=== PATIENT | female | born 1975 | race Caucasian/White ===

== ENCOUNTER 2019-01-14 12:46 | Outpatient (CLI) | payer BC | END 2019-01-14 12:47 | disposition home or self-care (01) | LOC: DTY/OP 12:46 | PROVIDERS: ATTEND Specialist | DX: Z01.818 Encounter for other preprocedural examination (principal); E66.01 Morbid (severe) obesity due to excess calories | CPT/HCPCS: 97802 ==

== ENCOUNTER 2019-04-01 12:30 | Inpatient (IN) | payer BC ==
[2019-04-01 13:22] VITALS: BMI 48.6
[2019-04-07] MEDS ORDERED: cefOXitin 2 GM VIAL ONE (08:31)
[2019-04-07] MEDS ORDERED: Heparin 5,000 UNITS/ML VIAL ONE (08:31)
[2019-04-07] MEDS ORDERED: Sodium Chloride 0.9% 100 ML ONE (08:31)
[2019-04-07] MEDS ORDERED: Scopolamine 1.5 mg/72 hour Patch ONE (08:32)
[2019-04-07] MEDS ORDERED: Ketorolac Tromethamine 30 MG/ML VIAL ONE (08:32)
[2019-04-07] MEDS ORDERED: Bupivacaine/Epinephrine 0.25% 30 ML VIAL ONE (08:47)
[2019-04-07] MEDS ORDERED: Lidocaine 1% PF 5 ML VIAL ONE (11:11)
[2019-04-07] MEDS ORDERED: Dexamethasone 20 MG/5 ML VIAL ONE (11:11)
[2019-04-07] MEDS ORDERED: PROPOFOL 200 MG/20 ML VIAL ONE (11:11)
[2019-04-07] MEDS ORDERED: Vecuronium 10 MG VIAL ONE (11:11)
[2019-04-07] MEDS ORDERED: Glycopyrrolate 0.2 MG/ML 5 ML SYRINGE ONE (11:11)
[2019-04-07] MEDS ORDERED: Ondansetron PF 4 MG/2 ML Vial ONE (11:11)
[2019-04-07] MEDS ORDERED: Fentanyl 100 MCG/2 ML VIAL ONE (11:32)
[2019-04-07] MEDS ORDERED: Promethazine HCl 25 MG/ML VIAL ONE (11:38)
[2019-04-07] MEDS ORDERED: Dextrose 50% Abboject 50 ML SYRINGE SLOW IVP PRN (12:52)
[2019-04-07] MEDS ORDERED: Hydrocodone-Acetamin 15 ML UDCUP PO PRN (12:52)
[2019-04-07] MEDS ORDERED: Morphine 4 MG/ML VIAL SLOW IVP PRN ×2 (12:52)
[2019-04-07] MEDS ORDERED: Dextrose 5% in Water 1,000 ML IV PRN (12:52)
[2019-04-07] MEDS ORDERED: Promethazine HCl 25 MG/ML VIAL IM PRN (12:52)
[2019-04-07] MEDS ORDERED: diphenhydrAMINE 50 MG/ML VIAL IVP PRN (12:52)
[2019-04-07] MEDS ORDERED: Ondansetron PF 4 MG/2 ML Vial IVP PRN (12:52)
[2019-04-07] MEDS ORDERED: hydrALAZINE 20 MG/ML VIAL SLOW IVP PRN (12:52)
[2019-04-07] MEDS: Acetaminophen 1,000 MG in Premix Bag 1 BAG IVPB SCH ×2 (14:07→19:50)
[2019-04-07] MEDS: Ketorolac Tromethamine 30 MG/ML VIAL IVP SCH ×2 (14:08→19:50)
[2019-04-07] MEDS: D5 1/2 NS w/20 mEq KCL 1,000 ML IV SCH ×2 (14:08→23:17)
[2019-04-07] MEDS ORDERED: Enoxaparin Sodium 40 MG/0.4 ML SYRINGE SC SCH (21:00)
[2019-04-08] MEDS: Acetaminophen 1,000 MG in Premix Bag 1 BAG IVPB SCH ×2 (02:24→09:07)
[2019-04-08] MEDS: Ketorolac Tromethamine 30 MG/ML VIAL IVP SCH ×2 (02:25→08:58)
[2019-04-08 05:48] LABS: #Lymphocytes 2.2 thou/uL (1.20-3.40); #Monocytes 0.9 thou/uL (0.11-0.59); #Neutrophils 9.1 thou/uL (1.40-6.50); %Basophils 0.2 % (0.0-1.0); %Eosinophils 0.2 % (0.0-10.0); %Monocytes 7.1 % (0.0-10.0); %Neutrophils 74.6 % (42.0-75.0); Hemoglobin 12.1 g/dL (12.0-16.0); Mean Corpuscular HGB CONC 32.7 g/dL (32.0-36.0); Mean Corpuscular Hemoglobin 30.6 pg (27.0-31.0); Mean Corpuscular Volume 93.4 fL (78.0-98.0); Mean Platelet Volume 8.4 fL (7.4-10.4); Platelet Count 270 thou/uL (130-400); RBC Distribution Width 12.2 % (11.5-14.5); Red Blood Cell (RBC) Count 3.95 mill/uL (4.20-5.40); White Blood Cell (WBC) Count 12.1 thou/uL (4.8-10.8)
[2019-04-08 06:09] LABS: Anion Gap 10 mmol/L (10-20); BUN (Urea Nitrogen) 7 mg/dL (7.0-18.7); Calc. Creatinine Clearance 192 mL/min (70-130); Calcium 9.1 mg/dL (7.8-10.44); Carbon Dioxide 24 mmol/L (22-29); Chloride 108 mmol/L (98-107); Estimated GFR-MDRD 86; Glucose 149 mg/dL (70-105); Potassium 4.4 mmol/L (3.5-5.1); Sodium 138 mmol/L (136-145)
[2019-04-08] MEDS: D5 1/2 NS w/20 mEq KCL 1,000 ML IV SCH (07:32)
[2019-04-08 07:59] VITALS: BP 126/80; TEMP 99
[2019-04-08] MEDS ORDERED: Pantoprazole 40 MG VIAL IVP SCH (09:00)
--- NOTE | 2019-04-10 09:43 | OP ---
DATE OF PROCEDURE: 04/07/2019 PREOPERATIVE DIAGNOSIS: Morbid obesity. POSTOPERATIVE DIAGNOSIS: Morbid obesity. OPERATION PERFORMED: Laparoscopic sleeve gastrectomy using a ViSiGi device. ANESTHESIA: General endotracheal. INDICATIONS: The patient is a 44-year-old morbidly obese white female. She is from [place], [place]. She has undergone preoperative evaluation and education and presents today for sleeve gastrectomy and treatment of her obesity. Her BMI is approximately 47. DESCRIPTION OF OPERATION: Informed consent was obtained. The patient was taken to the operating room where general endotracheal anesthesia was obtained with the patient in supine position. Abdomen was prepped with ChloraPrep and draped in sterile fashion. Local anesthetic was infiltrated and 5 mm supraumbilical incision was created through which Veress needle was passed to the peritoneal cavity and pneumoperitoneum established using carbon dioxide up to a pressure of 15 mmHg. A 5 mm trocar port was passed through this same incision. Laparoscopic camera was passed through this port. Under direct vision, 4 additional ports were placed including bilateral 5 mm subcostal ports, a 12 mm right paramedian port and a 15 mm left paramedian port. A 5 mm epigastric incision was created through which Nathansen retractor was passed into the abdominal cavity and used to retract the left lobe of the liver. The patient was placed into reverse Trendelenburg position. The ViSiGi device was advanced within the stomach and used to decompress this. The pylorus was identified and beginning 4 cm proximal to the pylorus, the omentum and vascular tissue along the greater curvature was divided using the LigaSure in an ascending fashion up to the angle of His. All posterior adhesions were mobilized. The short gastric vessels were carefully divided and then hemostasis was maintained using the LigaSure. Once this was completely mobilized, the ViSiGi was carefully positioned at the level of the pylorus and placed to suction, which was clearly defining the lesser curvature of the stomach. The gastrectomy was then performed using a series of fires of the Hemphill stapler using a green load followed by a gold load and a series of blue loads until completion of the gastrectomy. The ViSiGi along the lesser curvature was used as a size 36 bougie to guide in the gastric division. Care was taken to avoid narrowing the incisura or the gastroesophageal junction. The integrity of the staple line was then assessed by insufflating gas through the ViSiGi while irrigating along the staple line. There was no evidence of an air leak. There was no evidence of bleeding along the staple line. The resected stomach was then removed through the 15 mm port and the fascia was closed with 0 Vicryl suture using a GraNee needle. I then closed the 12 mm port also using the GraNee needle and 0 Vicryl suture. The Nathansen retractor was removed. All ports and instruments were removed under direct vision. All irrigant was aspirated. Pneumoperitoneum was carefully evacuated. 0.25% Marcaine with epinephrine was infiltrated into each port site. Skin edges approximated with 4-0 Monocryl subcuticular suture. Dermabond was placed externally. There were no complications. The patient tolerated the procedure well and was taken to recovery room in stable condition. FINDINGS: The patient had some scar tissue from a prior cholecystectomy. This was mobilized in order to gain appropriate mobility of her duodenum. There were no other intraabdominal abnormalities. The surgery was performed in a standard fashion with essentially no blood loss. There was no evidence of air leak during the leak test. She tolerated the procedure well, was taken to recovery room in stable condition. Job ID: [id number]
== END 2019-04-08 09:20 | disposition home or self-care (01) | DRG 621 ==
LOC: SURG A 04-07 07:35
PROVIDERS: ADMIT Specialist; ATTEND Specialist
PROC: 0DB64Z3 Excision of Stomach, Percutaneous Endoscopic Approach, Vertical (ICD-10-PCS; principal; 2019-04-07)
DX: E66.01 Morbid (severe) obesity due to excess calories (principal); Z68.42 Body mass index [BMI] 45.0-49.9, adult; I10 Essential (primary) hypertension; J44.9 Chronic obstructive pulmonary disease, unspecified; E11.9 Type 2 diabetes mellitus without complications; Z87.891 Personal history of nicotine dependence; Z86.73 Personal history of transient ischemic attack (TIA), and cerebral infarction without residual deficits; Z90.49 Acquired absence of other specified parts of digestive tract; Z98.890 Other specified postprocedural states
CPT/HCPCS: 36415; 80048; 85025; 88307; 88312; 94760; J0131; J0694; J1644; J1650; J1885; J2270; J2405; J2550; J3010; J3490